=== PATIENT | female | born 1955 | race African-American/Black ===

== ENCOUNTER 2017-09-22 00:15 | Inpatient (IN) ==
[2017-09-22] MEDS ORDERED: ALUM/MAG/SIMETH/LIDO VISC 1:1 30 ML BOTTLE PO STA (00:37)
[2017-09-22] MEDS ORDERED: ASPIRIN 325 MG TABLET PO STA (00:37)
[2017-09-22] MEDS ORDERED: MORPHINE 2 MG/1 ML SYRINGE IV STA (00:37)
[2017-09-22] MEDS ORDERED: NITROGLYCERIN 2% OINT 1 INCH/GM PACK TOP STA (00:37)
[2017-09-22] MEDS ORDERED: ONDANSETRON 4 MG/2 ML VIAL IV STA (00:37)
[2017-09-22] MEDS ORDERED: MORPHINE 2 MG/1 ML SYRINGE ONE (01:37)
[2017-09-22] MEDS ORDERED: ALUM/MAG/SIMETH/LIDO VISC 1:1 30 ML BOTTLE PO ONE (01:37)
[2017-09-22] MEDS ORDERED: ONDANSETRON 4 MG/2 ML VIAL ONE (01:37)
[2017-09-22] MEDS ORDERED: NITROGLYCERIN 2% OINT 1 INCH/GM PACK TOP ONE (01:37)
[2017-09-22 01:55] LABS: Basophils # 0.1 10*3/uL (0.0-0.2); Basophils % 0.6 % (0.0-0.8); Eosinophils # 0.1 10*3/uL (0.0-0.87); Eosinophils % 1.1 % (0.00-10.9); Hemoglobin 12.6 GM/DL (12.0-16.0); Immature Granulocytes % 0.2 %; Immature Granulocytes Absolute 0.02 #; Lymphocytes # 4.6 10*3/uL (1.4-4.0); Mean Corpuscular Hemoglobin 29 PG (27-34); Mean Corpuscular Volume 82.6 FL (87-102); Mean Platelet Volume 11.7 FL (9.6-12.0); Monocytes # 0.7 10*3/uL (0.11-0.8); Monocytes % 6.1 % (1.7-12.7); Neutrophils # 5.3 10*3/uL (1.4-7.4); Platelet Count 252 T/CUMM (130-400); Red Blood Count 4.36 MC/CUMM (3.8-5.5); White Blood Count 10.8 T/CUMM (4-12)
[2017-09-22 02:08] LABS: PT Patient Result 10.6 SECS
[2017-09-22 02:16] LABS: Albumin 3.4 G/DL (3.4-5.0); Bilirubin,Total 0.4 MG/DL (0.2-1.0); Calcium 8.3 MG/DL (8.5-10.1); Magnesium 1.8 MG/DL (1.8-2.4); Osmolality,Calculated 288.3 MOS/KG (273-304); Potassium 3.5 MMOL/L (3.5-5.1); Total Protein 7.3 G/DL (6.4-8.3)
[2017-09-22] MEDS ORDERED: NITROGLYCERIN SL 0.4 MG TABLET SL PRN (03:32)
[2017-09-22] MEDS ORDERED: GLUCAGON 1 MG VIAL IM PRN (03:38)
[2017-09-22] MEDS ORDERED: DEXTROSE 50% 25 GM/50 ML VIAL IV PRN (03:38)
[2017-09-22] MEDS: SODIUM CHLORIDE 0.9% 1,000 ML IV SCH ×2 (03:56→14:40)
[2017-09-22] MEDS ORDERED: HEPARIN DRIP 25,000 UNITS/500 ML PREMIX IV SCH (04:00)
[2017-09-22 06:04] LABS: Risk Ratio 3.87; VLDL CHOLESTEROL 92.4 MG/DL
[2017-09-22] MEDS ORDERED: ASPIRIN 325 MG TABLET ONE (08:10)
[2017-09-22] MEDS ORDERED: DIAZEPAM 5 MG TABLET PO ONE (08:16)
[2017-09-22] MEDS ORDERED: diphenhydrAMINE CAP 25 MG CAPSULE PO ONE (08:16)
[2017-09-22] MEDS ORDERED: MAGNESIUM SULF RIDER 2 GM in PREMIX 1 EACH IV PRN (08:16)
[2017-09-22] MEDS: INSULIN LISPRO 100 UNIT/ML SUBCUT SCH ×4 (08:21→22:57)
[2017-09-22] MEDS ORDERED: POTASSIUM CHLORIDE INJ 20 MEQ in SODIUM CHLORIDE 0.45% 250 ML IV ONE (09:00)
[2017-09-22] MEDS: LISINOPRIL 10 MG TABLET PO SCH (09:12)
[2017-09-22] MEDS: CARVEDILOL 12.5 MG TABLET PO SCH ×3 (09:12→20:55)
[2017-09-22] MEDS ORDERED: POTASSIUM CHLORIDE RIDER 10 MEQ in PREMIX 1 EACH IV PRN (09:23)
[2017-09-22] MEDS ORDERED: LIDOCAINE 1% 20 ML VIAL ONE (09:53)
[2017-09-22] MEDS ORDERED: MEPERIDINE 25 MG/1 ML VIAL ONE (10:12)
[2017-09-22] MEDS ORDERED: MIDAZOLAM 2 MG/2 ML VIAL ONE (10:12)
[2017-09-22] MEDS ORDERED: ASPIRIN CHEW 81 MG TABLET PO ONE (10:29)
[2017-09-22] MEDS ORDERED: HEPARIN 5,000 UNIT/1 ML VIAL ONE (10:31)
[2017-09-22] MEDS ORDERED: TIROFIBAN 5,000 MCG/100 ML PREMIX IV ONE (10:32)
[2017-09-22] MEDS ORDERED: TIROFIBAN 5,000 MCG/100 ML PREMIX IV SCH (10:40)
[2017-09-22] MEDS ORDERED: TICAGRELOR 90 MG TABLET ONE (11:06)
[2017-09-22] MEDS ORDERED: ZALEPLON 5 MG CAPSULE PO PRN (11:36)
[2017-09-22] MEDS: NITROGLYCERIN 2% OINT 1 INCH/GM PACK TOP SCH ×2 (12:03→17:56)
[2017-09-22 13:56] LABS: CKMB % 6.5 %
[2017-09-22 14:07] LABS: Troponin I Only 14.2 NG/ML (0.00-0.045)
[2017-09-22 15:35] LABS: Apearance,Urine CLEAR (Clear); Bilirubin,Urine Negative (Negative); Blood, Urine Negative (Negative); Glucose,Urine (UA) 50 mg/dL (Negative); Ketones,Urine Negative (Negative); Nitrite,Urine Negative (Negative); Protein,Urine Negative; RBC,Urine <1 /HPF (0-4); Urine Color Straw (Yellow); Urine Specific Gravity > 1.060 (1.001-1.035); Urine Urobilinogen < 2.0 EU/DL (0.2-1.0); WBC,Urine <1 /HPF (0-6)
[2017-09-22] MEDS: POTASSIUM CHLORIDE 20 MEQ TABLET PO PRN ×2 (16:11→17:57)
[2017-09-22 19:51] LABS: CKMB % 6.2 %
[2017-09-22 19:55] LABS: Troponin I Only 7.95 NG/ML (0.00-0.045)
[2017-09-22] MEDS: TICAGRELOR 90 MG TABLET PO SCH (20:55)
[2017-09-22] MEDS: ROSUVASTATIN 20 MG TABLET PO SCH (20:55)
[2017-09-23] MEDS: NITROGLYCERIN 2% OINT 1 INCH/GM PACK TOP SCH ×2 (00:57→06:15)
[2017-09-23] MEDS: SODIUM CHLORIDE 0.9% 1,000 ML IV SCH (00:57)
[2017-09-23] MEDS: CARVEDILOL 12.5 MG TABLET PO SCH ×4 (02:20→21:48)
[2017-09-23 04:48] LABS: Basophils # 0.1 10*3/uL (0.0-0.2); Basophils % 0.6 % (0.0-0.8); Eosinophils # 0.1 10*3/uL (0.0-0.87); Eosinophils % 1.2 % (0.00-10.9); Hematocrit 35.5 VOL% (35.7-47.0); Hemoglobin 11.7 GM/DL (12.0-16.0); Immature Granulocytes % 0.4 %; Immature Granulocytes Absolute 0.04 #; Lymphocytes # 2.7 10*3/uL (1.4-4.0); Lymphocytes % 26.1 % (21.3-54.2); Mean Corpuscular Hemoglobin 28 PG (27-34); Mean Corpuscular Volume 83.9 FL (87-102); Mean Platelet Volume 11.7 FL (9.6-12.0); Monocytes # 0.7 10*3/uL (0.11-0.8); Monocytes % 7.1 % (1.7-12.7); Neutrophils # 6.8 10*3/uL (1.4-7.4); Neutrophils % 64.6 % (38.7-73.9); Platelet Count 222 T/CUMM (130-400); Red Blood Count 4.23 MC/CUMM (3.8-5.5); Red Cell Distribution Width 11.9 % (9.3-17.3); White Blood Count 10.5 T/CUMM (4-12)
[2017-09-23 05:14] LABS: Calcium 8.7 MG/DL (8.5-10.1); Magnesium 1.6 MG/DL (1.8-2.4); Potassium 3.7 MMOL/L (3.5-5.1)
[2017-09-23 05:22] LABS: CKMB % 6.6 %
[2017-09-23 05:24] LABS: Troponin I Only 5.6 NG/ML (0.00-0.045)
[2017-09-23] MEDS ORDERED: NITROGLYCERIN SL 0.4 MG TABLET SL PRN (09:07)
[2017-09-23] MEDS: INSULIN LISPRO 100 UNIT/ML SUBCUT SCH ×4 (09:56→21:48)
[2017-09-23] MEDS: TICAGRELOR 90 MG TABLET PO SCH ×2 (09:57→21:48)
[2017-09-23] MEDS: LISINOPRIL 10 MG TABLET PO SCH (09:57)
[2017-09-23] MEDS: ASPIRIN CHEW 81 MG TABLET PO SCH (09:57)
[2017-09-23] MEDS: MAGNESIUM OXIDE 400 MG TABLET PO SCH ×2 (10:20→21:48)
[2017-09-23] MEDS ORDERED: metFORMIN 500 MG TABLET PO SCH (12:00)
[2017-09-23] MEDS: metFORMIN 500 MG TABLET PO SCH (17:31)
[2017-09-23] MEDS ORDERED: DEXTROSE 50% 25 GM/50 ML VIAL IV PRN (18:54)
[2017-09-23] MEDS ORDERED: GLUCAGON 1 MG VIAL IM PRN (18:54)
[2017-09-23] MEDS ORDERED: LOPERAMIDE 0.2 MG/ML 30 ML/BOTTLE PO PRN (20:42)
[2017-09-23] MEDS: ROSUVASTATIN 20 MG TABLET PO SCH (21:48)
[2017-09-24 04:41] LABS: Basophils # 0.1 10*3/uL (0.0-0.2); Basophils % 0.7 % (0.0-0.8); Eosinophils # 0.1 10*3/uL (0.0-0.87); Eosinophils % 1.4 % (0.00-10.9); Hematocrit 33.2 VOL% (35.7-47.0); Hemoglobin 11.1 GM/DL (12.0-16.0); Immature Granulocytes % 0.5 %; Immature Granulocytes Absolute 0.05 #; Lymphocytes # 3.4 10*3/uL (1.4-4.0); Lymphocytes % 33.3 % (21.3-54.2); Mean Corpuscular HGB Conc 33.4 GM/DL (32-36); Mean Corpuscular Hemoglobin 29 PG (27-34); Mean Corpuscular Volume 85.1 FL (87-102); Monocytes # 0.9 10*3/uL (0.11-0.8); Neutrophils # 5.7 10*3/uL (1.4-7.4); Neutrophils % 55.1 % (38.7-73.9); Platelet Count 224 T/CUMM (130-400); Red Cell Distribution Width 11.9 % (9.3-17.3); White Blood Count 10.3 T/CUMM (4-12)
[2017-09-24 05:30] LABS: Calcium 8.7 MG/DL (8.5-10.1); Magnesium 1.9 MG/DL (1.8-2.4); Osmolality,Calculated 284.5 MOS/KG (273-304); Potassium 3.8 MMOL/L (3.5-5.1)
[2017-09-24] MEDS ORDERED: glyBURIDE 2.5 MG TABLET PO SCH (08:00)
[2017-09-24 08:07] VITALS: BP 125/63
[2017-09-24] MEDS: metFORMIN 500 MG TABLET PO SCH (08:46)
[2017-09-24] MEDS: CARVEDILOL 12.5 MG TABLET PO SCH (08:47)
[2017-09-24] MEDS: INSULIN LISPRO 100 UNIT/ML SUBCUT SCH (08:47)
[2017-09-24] MEDS: TICAGRELOR 90 MG TABLET PO SCH (08:47)
[2017-09-24] MEDS: MAGNESIUM OXIDE 400 MG TABLET PO SCH (08:47)
[2017-09-24] MEDS: ASPIRIN CHEW 81 MG TABLET PO SCH (08:47)
[2017-09-24] MEDS ORDERED: LISINOPRIL 2.5 MG TABLET PO SCH (09:00)
== END 2017-09-24 11:33 | disposition home or self-care (01) | DRG 247 ==
LOC: N.ED 00:15 → N.EDINP 00:50 → N.TELEN 01:37
PROVIDERS: ADMIT Internal Medicine Cardiovascular Disease; ATTEND Internal Medicine Cardiovascular Disease
PROC: CLCCHCL (ICD-10-PCS; 2017-09-22 10:45)